=== PATIENT | female | born 1995 | race Caucasian/White ===

== ENCOUNTER 2017-02-08 14:55 | Emergency (ER) | payer OTHER ==
[~2017-02-08] VITALS: Ht 162.6 cm; Wt 59.0 kg
[2017-02-08 15:17] VITALS: BP 113/77
== END 2017-02-08 16:37 | disposition left against medical advice (07) ==
LOC: ER 15:07
DX: M25.552 Pain in left hip (principal); Z53.21 Procedure and treatment not carried out due to patient leaving prior to being seen by health care provider

== ENCOUNTER 2017-08-22 06:17 | Emergency (ER) | payer MEDICAID, OTHER | END 2017-08-22 08:04 | disposition left against medical advice (07) | LOC: ER 06:17 | DX: R04.0 Epistaxis (principal); Z53.21 Procedure and treatment not carried out due to patient leaving prior to being seen by health care provider ==

== ENCOUNTER 2020-01-21 13:55 | Emergency (ER) | payer MEDICAID ==
[~2020-01-21] VITALS: Ht 162.6 cm; Wt 90.7 kg
[2020-01-21 14:20] VITALS: BP 116/83
[2020-01-21] MEDS ORDERED: ACETAMINOPHEN 325 MG TAB PO ONE (15:15)
[2020-01-21] MEDS ORDERED: cefTRIAXone SOD 1,000 MG VL IM ONE (15:15)
== END 2020-01-21 15:37 | disposition home or self-care (01) ==
LOC: ER 13:55
DX: J03.90 Acute tonsillitis, unspecified (principal); Z88.0 Allergy status to penicillin; Z88.8 Allergy status to other drugs, medicaments and biological substances
CPT/HCPCS: 96372; 99283; J0696

== ENCOUNTER 2020-11-20 20:32 | Emergency (ER) | payer MEDICAID ==
[~2020-11-20] VITALS: Ht 162.6 cm; Wt 95.3 kg
[2020-11-20] MEDS ORDERED: KETOROLAC TROMETH 60MG/2ML VIAL IM ONE (23:00)
[2020-11-21 01:50] VITALS: BP 121/80
== END 2020-11-21 01:47 | disposition home or self-care (01) ==
LOC: ER 20:48
DX: S39.012A Strain of muscle, fascia and tendon of lower back, initial encounter (principal); M47.816 Spondylosis without myelopathy or radiculopathy, lumbar region; M41.86 Other forms of scoliosis, lumbar region; Z88.0 Allergy status to penicillin; X58.XXXA Exposure to other specified factors, initial encounter; Y93.89 Activity, other specified; Y92.89 Other specified places as the place of occurrence of the external cause; Y99.8 Other external cause status
CPT/HCPCS: 72100; 81025; 96372; 99284; J1885

== ENCOUNTER 2021-01-28 08:26 | Emergency (ER) | payer MEDICAID ==
[~2021-01-28] VITALS: Ht 162.6 cm; Wt 90.7 kg
[2021-01-28 08:55] LABS: Urine WBC None Seen /hpf (0 - 5)
[2021-01-28 09:27] LABS: Urine Bacteria FEW /hpf (None Seen); Urine Blood 3+ /uL (Negative); Urine Specific Gravity 1.007 (1.001-1.035)
[2021-01-28 09:40] VITALS: BP 121/84
== END 2021-01-28 10:26 | disposition home or self-care (01) ==
LOC: ER 08:26
DX: N91.0 Primary amenorrhea (principal); Z32.02 Encounter for pregnancy test, result negative; Z88.0 Allergy status to penicillin
CPT/HCPCS: 36415; 81001; 81025; 84702

== ENCOUNTER 2022-01-02 19:37 | Observation (INO) | payer MEDICAID ==
[2022-01-02] MEDS ORDERED: ONDANSETRON HCL 4 MG/2 ML VIAL IV ONE (20:15)
[2022-01-02] MEDS ORDERED: LACTATED RINGER'S 1,000 ML IV ONE (20:15)
[2022-01-02] MEDS ORDERED: LACTATED RINGER'S 1,000 ML IV SCH (20:15)
[2022-01-02] MEDS ORDERED: PREN-96 PO (22:11)
== END 2022-01-02 22:29 | disposition home or self-care (01) ==
LOC: LDRP 19:37
PROVIDERS: ADMIT Obstetrics & Gynecology; ATTEND Obstetrics & Gynecology
DX: O21.2 Late vomiting of pregnancy (principal); O26.893 Other specified pregnancy related conditions, third trimester; E86.0 Dehydration; R51.9 Headache, unspecified; M79.605 Pain in left leg; M79.604 Pain in right leg; Z3A.28 28 weeks gestation of pregnancy
CPT/HCPCS: 59025; 81002; 94760; 96361; 96374; G0378; J2405; 96360

== ENCOUNTER 2024-06-18 10:55 | Emergency (ER) | payer MEDICAID ==
[~2024-06-18] VITALS: Ht 162.6 cm; Wt 89.3 kg
[~2024-06-18 10:55] MED LIST: PREN-96 PO
[2024-06-18 11:40] VITALS: BP 131/84; PULSE 87; RESP 15; TEMP 97.8; O2SAT 100
--- NOTE | 2024-06-18 11:54 | ED.PDOC ---
History of Present Illness HPI Comments A 29 YEAR OLD FEMALE PRESENTS TO THE ED WITH COMPLAINT OF PELVIC PAIN AND COUGH. PATIENT STATES SHE HAS BEEN EXPERIENCING PELVIC PAIN, BODY ACHES, COUGH, CONGESTION, NAUSEA, AND INCREASED ANXIETY FOR THE PAST 4 DAYS. PATIENT NOTES SHE STARTED HER MENSTRUAL PERIOD YESTERDAY. PATIENT DENIES SI, HI, DYSURIA, LUNA TURIA, FEVER, CHILLS, SHORTNESS OF BREATH, CHEST PAIN, ABDOMINAL PAIN, NAUSEA, VOMITING, HEADACHE, OR OTHER COMPLAINTS. NO OTHER SYMPTOMS OR MODIFYING FACTORS AT THIS TIME. PATIENT IS ALERT, ORIENTED X 4, AND HAS STEADY GAIT. Chief Complaint: Pelvic Pain Time Seen by MD: 11:19 Primary Care Provider: BRANDIE DU Reviewed Notes: Nurses Notes, Medications, Allergies Allergies: Coded Allergies: Penicillins (Unverified Allergy, Unknown, 02/08/17) Home Meds Active Scripts Ibuprofen (Ibuprofen) 800 Mg Tab, 1 TAB PO TID, #30 TAB Prov:SHAQ STANLEY 06/18/24 Cephalexin Monohydrate (Cephalexin) 500 Mg Cap, 1 CAP PO QID, #28 CAP Prov:SHAQ STANLEY 06/18/24 Reported Medications Vit W/ Ferrous Fumara ( One Daily) Daily Tab, 1 TAB PO DAILY, #90 TAB 3 Refills 01/02/22 Information Source: Patient Mode of Arrival: Ambulatory Severity: Moderate Timing: Days Duration: Since onset, Days Prehospital treatment: None Medication Refill: For: Other (PELVIC PAIN, COUGH, AND ANXIETY) Past Medical History PAST MEDICAL HISTORY: Anxiety Surgical History: Denies all surgeries DEFENSE TRAVEL ADMINISTRATOR History: No Pertinent DEFENSE TRAVEL ADMINISTRATOR History Family History Family History: Reviewed,noncontributory to illness Social History Smoker: Non-Smoker Alcohol: Denies ETOH Use Drugs: Denies Drug Use Lives In: Home Constitutional: denies: chills, diaphoresis, fatigue, fever, malaise, sweats, weakness, others EENTM: reports: nose congestion; denies: blurred vision, double vision, ear bleeding, ear discharge, ear drainage, ear pain, ear ringing, eye pain, eye redness, hearing loss, mouth pain, mouth swelling, nasal discharge, nose bleeding, nose pain, photophobia, tearing, throat pain, throat swelling, voice changes, others Respiratory: reports: cough; denies: hemoptysis, orthopnea, SOB at rest, shortness of breath, SOB with excertion, stridor, wheezing, others Cardiovascular: denies: chest pain, dizzy spells, diaphoresis, Dyspnea on exertion, edema, irregular heart beat, left arm pain, lightheadedness, palpitations, PND, syncope, others Gastrointestinal: denies: abdomen distended, abdominal pain, blood streaked bowels, constipated, diarrhea, dysphagia, difficulty swallowing, hematemesis, melena, nausea, poor appetite, poor fluid intake, rectal bleeding, rectal pain, vomiting, others Genitourinary: reports: frequency, pain (PELVIC PAIN), urgency; denies: abnormal vagina bleeding, burning, dyspareunia, dysuria, flank pain, hematuria, incontinence, , vagina discharge, others Neurological: denies: dizziness, fainting, headache, left sided numbness, left sided weakness, numbness, paresthesia, pre-existing deficit, right sided numbness, right sided weakness, seizure, speech problems, tingling, tremors, weakness, others Musculoskeletal: denies: back pain, gout, joint pain, joint swelling, muscle pain, muscle stiffness, neck pain, others Integumetry: denies: bruises, change in color, change in hair/nails, dryness, laceration, lesions, lumps, rash, wounds, others Allergic/Immunocompromised: denies: Difficulty Healing, Frequent Infections, Hives, Itching, others Hematologic/Lymphatic: denies: anemia, blood clots, easy bleeding, easy bruising, swollen glands, others Endocrine: denies: excessive hunger, excessive sweating, excessive thirst, excessive urination, flushing, intolerance to cold, intolerance to heat, unexplained weight gain, unexplained weight loss, others Psychiatric: reports: anxiety; denies: bipolar disorder, depression, hopeless, panic disorder, schizophrenia, sleepless, suicidal, others All Other Systems: Reviewed and Negative Physical Exam General Appearance: Mild Distress, Obese, Other (ANXIOUS) HEENT: Normal ENT Inspection, PERRL/EOMI, Pharynx Normal, TMs Normal Neck: Full Range of Motion, Non-Tender, Normal, Normal Inspection Respiratory: Chest Non-Tender, Lungs Clear, No Accessory Muscle Use, No Respiratory Distress, Normal Breath Sounds Cardiovascular: No Edema, No JVD, No Murmur, No Gallop, Normal Peripheral Pulses, Regular Rate/Rhythm Breast Exam: Deferred Gastrointestinal: No Organomegaly, Non Tender, No Pulsatile Mass, Normal Bowel Sounds, Soft Genitalia: Deferred Pelvic: Normal External Exam, Tender Uterus (TENDERNESS LEFT PELVIC, NO GUARD ING AND REBOUND TENDERNESS. ), Other Rectal: Deferred Extremities: No calf tenderness, Normal capillary refill, Normal inspection, Normal range of motion, Non-tender, No pedal edema Musculoskeletal : Apperance: Normal Neurologic: Alert, stain applicator II-XII nml as Tested, No Motor Deficits, Normal Affect, Normal Mood, No Sensory Deficits Cerebellar Function: Normal Reflexes: Normal Skin: Dry, Normal Color, Warm Peripheral Pulses: 2+ carotid (R), 2+ carotid (L) Lymphatic: No Adenopathy Was a procedure done? Was a procedure done?: No Differential Dx Considerations may include: ANXIETY REACTION, HYPERVENTILATION SYNDROME, UTI, ACUTE CYSTITIS, BRONCHITIS, URI, TONSILLITIS, PHARYNGITIS, OTITIS MEDIA X-Ray, Labs, Meds, VS Vital Signs Date Time Temp Pulse Resp B/P (MAP) Pulse Ox O2 Delivery O2 Flow Rate FiO2 06/18/24 11:40 97.8 87 15 131/84 (100) 100 97.8 06/18/24 11:40 87 15 100 Room Air 06/18/24 11:07 97.8 87 15 131/84 (100) 100 Lab Test 06/18/24 13:03 06/18/24 11:14 Range/Units White Blood Count Pending Red Blood Count Pending Hemoglobin Pending Hematocrit Pending Mean Corpuscular Volume Pending Mean Corpuscular Hemoglobin Pending Mean Corpuscular Hemoglobin Concent Pending Red Cell Distribution Width Pending Platelet Count Pending Mean Platelet Volume Pending Neutrophils (%) (Auto) Pending Lymphocytes (%) (Auto) Pending Monocytes (%) (Auto) Pending Basophils (%) (Auto) Pending Neutrophils # (Auto) Pending Lymphocytes # (Auto) Pending Monocytes # (Auto) Pending Sodium Level 137 136-145 mmol/L Potassium Level 3.4 L 3.5-5.1 mmol/L Chloride Level 105 98-107 mmol/L Carbon Dioxide Level 22 20-31 mmol/L Anion Gap 10 5-15 Blood Urea Nitrogen 7 L 9-23 mg/dL Creatinine 0.70 0.550-1.02 mg/dL Glomerular Filtration Rate Calc 120 >90 mL/min BUN/Creatinine Ratio 10.0 10.0-20.0 Serum Glucose 92 74-106 mg/dL Calcium Level 9.6 8.7-10.4 mg/dL Urine Color Light-red Yellow Urine Clarity Ex.turbid Clear Urine pH 6.0 5.0-9.0 Urine Specific [place] 1.026 1.001-1.035 Urine Protein 1+ H Negative Urine Ketones Trace Negative Urine Blood 3+ H Negative /uL Urine Nitrite Negative Negative Urine Bilirubin Negative Negative Urine Urobilinogen Normal Negative mg/dL Urine Leukocyte Esterase 2+ Negative /uL Urine RBC 8577 0 - 4 /hpf Urine WBC 173 0 - 5 /hpf Urine Squamous Epithelial Cells None seen <5 /hpf Urine Bacteria None seen None Seen /hpf Urine Mucus Few None Seen Urine Glucose Normal Normal mg/dL Urine Test Negative Negative Current Medications Medications (Trade) Dose Ordered Sig/Betsey Route Start Time Stop Time Status Last Admin Ketorolac Tromethamine (Toradol Injection) 60 mg ONCE ONCE IM 06/18/24 13:30 06/18/24 13:31 DC 06/18/24 13:52 INDICATION: LEFT PELVIC PAIN TECHNIQUE: Multiple real-time grayscale transabdominal sonographic images along with color and duplex Doppler of the uterus and ovaries were obtained. COMPARISON: None FINDINGS: The uterus measures 6.8 x 3.8 x 5.3 cm. The endometrial stripe measures 0.9 cm. Right ovary measures 2.1 x 3.0 x 1.7 cm with normal Doppler color flow Left ovary measures 3.3 x 1.6 x 3.1 cm with normal Doppler color flow IMPRESSION: 1. Grossly unremarkable pelvic ultrasound. ATED BY: SATYA ELLER MD DICTATED DATE/TIME: 06/18/24 1400 SIGNED BY: SATYA ELLER MD SIGNED DATE/TIME: 06/18/24 1400 CC: X-Ray, Labs, Meds, VS Comment EXTERNAL NOTES: NONE LABS ORDERED: CBC, BMP, UA, URINE REVIEWED AND INTERPRETED RESULTS: LEUKO 2+, BLOOD 3+ IMAGING ORDERED: US PELVIS INDEPENDENT HISTORIANS: NONE TREATMENTS ORDERED: TORADOL 60MG IM PATIENT'S CASE AND RESULTS HAVE BEEN DISCUSSED WITH THE ED ATTENDING PHYSICIAN AND THEY AGREE WITH MY PLAN OF CARE. I HAVE DISCUSSED IMAGING AND LAB RESULTS WITH THE PATIENT AND HAVE INSTRUCTED THE PATIENT TO FOLLOW UP WITH THEIR PCP IN 1-2 DAYS. THE PATIENT FULLY UNDERSTANDS THEIR RESULTS AND ARE AWARE THEY NEED TO FOLLOW UP WITH THEIR PCP FOR FURTHER EVALUATION IF THEIR SYMPTOMS PERSIST. Time of 1ST Reevaluation: 14:08 Reevaluation 1ST: Improved Patient Education/Counseling: Diagnosis, Treatment, Need For Follow Up Family Education/Counseling: Diagnosis, Treatment, Need For Follow Up Medical Screening: No EMC Exist At This Time Departure 1 Departure Time of Disposition: 14:10 Impression: Primary Impression: Acute UTI (urinary tract infection) Additional Impression: Menstrual cramps Disposition: HOME / SELF CARE / HOMELESS Condition: Stable Additional Instructions: FOLLOW-UP WITH PCP IN 1 TO 2 DAYS. TAKE MEDICATIONS PRESCRIBED. RETURN TO ED FOR ANY NEW OR WORSENING SYMPTOMS. e-Prescriptions Ibuprofen (Ibuprofen) 800 Mg Tab 1 TAB PO TID, #30 TAB Prov: SHAQ STANLEY 06/18/24 Cephalexin Monohydrate (Cephalexin) 500 Mg Cap 1 CAP PO QID, #28 CAP Prov: SHAQ STANLEY 06/18/24 Discharged With: Self Critical Care Note Critical Care Time?: No Stability Stability form required: No I personally scribed for SHAQ STANLEY ([email or web address]) on 06/18/24 at 11:54. Electronically submitted by Richard Jade ([email or web address]). I personally scribed for SHAQ STANLEY ([email or web address]) on 06/18/24 at 14:05. Electronically submitted by Richard Jade ([email or web address]). SHAQ STANLEY Jun 18, 2024 11:54
[2024-06-18 12:44] LABS: Urine Bacteria None Seen /hpf (None Seen)
[2024-06-18 13:17] LABS: Urine Blood 3+ /uL (Negative); Urine Clarity Ex.Turbid (Clear); Urine Color Light-Red (Yellow); Urine Mucus FEW (None Seen); Urine Protein, UAD 1+ (Negative); Urine Specific Gravity 1.026 (1.001-1.035); Urine Squamous Epithelial Cell None Seen /hpf (<5); Urine Urobilinogen Normal (Negative); Urine WBC 173 /hpf (0 - 5)
[2024-06-18] MEDS: KETOROLAC TROMETH 60MG/2ML VIAL IM ONE (13:52)
[2024-06-18 13:53] LABS: Chloride 105 mmol/L (98-107); Sodium 137 mmol/L (136-145)
[2024-06-18 13:54] LABS: Anion Gap 10 (5-15); Calcium 9.6 mg/dL (8.7-10.4); Carbon Dioxide 22 mmol/L (20-31)
[2024-06-18 13:58] LABS: Potassium 3.4 mmol/L (3.5-5.1)
[2024-06-18 13:59] LABS: Glucose 92 mg/dL (74-106)
[2024-06-18 14:01] LABS: Blood Urea Nitrogen 7 mg/dL (9-23)
--- NOTE | 2024-06-18 14:03 | DVH ---
INDICATION: LEFT PELVIC PAIN TECHNIQUE: Multiple real-time grayscale transabdominal sonographic images along with color and duplex Doppler of the uterus and ovaries were obtained. COMPARISON: None FINDINGS: The uterus measures 6.8 x 3.8 x 5.3 cm. The endometrial stripe measures 0.9 cm. Right ovary measures 2.1 x 3.0 x 1.7 cm with normal Doppler color flow Left ovary measures 3.3 x 1.6 x 3.1 cm with normal Doppler color flow IMPRESSION: 1. Grossly unremarkable pelvic ultrasound.
[2024-06-18] MEDS ORDERED: IBUP-1456 PO (14:06)
[2024-06-18] MEDS ORDERED: CEPH500C PO (14:06)
[2024-06-18 14:08] LABS: Basophils # (auto) 0 10 ^3/uL (0-0.2); Basophils % (auto) 0.2 % (0.0-2.0); Eosinophils # (auto) 0 10 ^3/uL (0-0.8); Eosinophils % (auto) 0.1 % (0.0-7.0); Hematocrit 42.7 % (36.0-46.0); Hemoglobin 14.4 g/dL (12.2-16.2); Lymphocytes # (auto) 0.3 10 ^3/uL (0.4-5.4); Mean Corpuscular Hemoglobin 31.3 pg (28.0-32.0); Mean Corpuscular Hgb Conc. 33.8 g/dL (32.0-36.0); Mean Corpuscular Volume 92.9 fL (80.0-100.0); Monocytes # (auto) 0.6 10 ^3/uL (0-1.3); Monocytes % (auto) 9.4 % (0.0-12.0); Neutrophils # (auto) 5.4 10 ^3/uL (1.6-8.6); Neutrophils % (auto) 86.3 % (37.0-80.0); Platelet Count (auto) 191 10^3/uL (140-450); Red Cell Distribution Width 13.9 % (11.8-14.3); White Blood Cell 6.3 10^3/uL (4.4-10.8)
== END 2024-06-18 14:20 | disposition home or self-care (01) ==
LOC: ER 10:55
DX: N39.0 Urinary tract infection, site not specified (principal); N94.6 Dysmenorrhea, unspecified; F41.9 Anxiety disorder, unspecified; Z88.0 Allergy status to penicillin
CPT/HCPCS: 36415; 76856; 80048; 81001; 81025; 85025; 96372; 99285; J1885